=== PATIENT | female | born 1950 | race Caucasian/White ===

== ENCOUNTER 2018-04-23 19:25 | Emergency (ER) | payer OTHER ==
[~2018-04-23] VITALS: Ht 152.4 cm; Wt 49.9 kg
--- NOTE | 2018-04-23 19:25 | NUR ---
Late Entry Patient arrived with 20 gauge angiocath to LAC placed by EMS.
--- NOTE | 2018-04-23 19:25 | NUR ---
Patient felt SOB while getting up from bathroom. She fell to the ground and was in respiratiory arrest at the time of EMS arrival. She had a lucie arrest shortly after. During prehospital care the patient had cardiac arrest and ROSC 3 times, the details of this are somewhat confused. Patient agian had cardiac arrest on arrival. See code sheet for detail. Patient was placed in bed [address] Lewis RT and all nurses at bedside.
[2018-04-23] MEDS ORDERED: NS 1000 ML IV.SOLN IV ONE (19:26)
[2018-04-23] MEDS ORDERED: DOPamine PREMIX 400 MG/250 ML BTL IV ONE (19:26)
[2018-04-23] MEDS ORDERED: EPINEPHrine JECT 1 MG/10 ML SYR IVP ONE (19:26)
[2018-04-23] MEDS ORDERED: SODIUM BICARBONATE 8.4% JECT 50 MEQ/50 ML SYRINGE IVP ONE (19:26)
[2018-04-23] MEDS ORDERED: ATROPINE SULFATE 1 MG/10 ML SYRINGE IVP ONE (19:26)
[2018-04-23] MEDS ORDERED: MAGNESIUM SULFATE 1 GM/2 ML VIAL IV ONE (19:26)
[2018-04-23] MEDS ORDERED: CALCIUM CHLORIDE 1 GM/10 ML DISP.SYRIN (14 mEq Ca++/SYR) IV ONE (19:26)
--- NOTE | 2018-04-23 19:50 | NUR ---
Late Entry 18 Gauge angiocath placed in Left AC. No signs of infiltration. No resistance noted.
[2018-04-23] MEDS ORDERED: AMIODARONE HCL 900 MG/18 ML VIAL IV ONE (19:55)
[2018-04-23] MEDS ORDERED: AMIODARONE HCL 900 MG in D5W 482 ML IV ONE (20:00)
[2018-04-23] MEDS ORDERED: NOREPINEPHRINE 4 MG/4 ML VIAL IV ONE (20:14)
--- NOTE | 2018-04-23 20:18 | NUR ---
Patient at 2017. Please see code blue sheet.
--- NOTE | 2018-04-23 20:20 | NUR ---
Dr. Lewis in Triage room informing , Zheng, of . Patient's accompanied to the patient. states " I have to go home. Please call me on what to do next.
--- NOTE | 2018-04-23 20:22 | NUR ---
[facility] [employer] called contacted by MARK Ornelas. Spoke with Via. States can be released to family to mortuary
--- NOTE | 2018-04-23 21:00 | NUR ---
Note anika in EDM - 04/23/18 at [address] Lewis in Triage room informing , Zheng, of . Patient's accompanied to the patient. states " I have to go home. Please call me on what to do next.
--- NOTE | 2018-04-23 21:08 | NUR ---
Note anika in ED - 04/23/18 at 2224 by SDEDCJM Patient at 2108. Please see code blue sheet.
--- NOTE | 2018-04-23 21:10 | NUR ---
[facility] Ch[facility] Case #[id number].
--- NOTE | 2018-04-23 22:01 | NUR ---
Spoke with pt , Zheng Hutchinson. Recieved verbal/telephone authorization to release body to [facility]. States that Dr. Agatha Joseph is the physician that she has been seeing. She is scheduled for Chemo tomorrow. Call placed to [facility]. OnCall Fellow, Enzo Avitia will be paged. Call returned at [phone]. Gave Dr. Avitia information regarding patient/treatment here at [facility]. Dr. Avitia will give message to Dr. Joseph at report in the AM. Contact numbers for Dr. Joseph on Record of .
--- NOTE | 2018-04-23 22:10 | NUR ---
[facility] called at [phone]. Gave pertinent information. Informed that patient's gave telephone consent. Will greens picker at approximately [phone].
--- NOTE | 2018-04-23 22:53 | NUR ---
Patient tagged and placed in body bag. Awaiting mortuary arrival.
[2018-04-23] MEDS ORDERED: NOREPINEPHRINE BITARTRATE 4 MG in NS 246 ML IV ONE (23:30)
[2018-04-23] MEDS ORDERED: DOPamine PREMIX 250 ML IV ONE (23:30)
--- NOTE | 2018-04-23 23:40 | NUR ---
Remains picked up by [facility] and [facility]. Remains identified by wrist tag and bag tag.
== END 2018-04-23 23:40 | disposition expired ==
LOC: SED 19:25
DX: I46.9 Cardiac arrest, cause unspecified (principal); Z85.048 Personal history of other malignant neoplasm of rectum, rectosigmoid junction, and anus
CPT/HCPCS: 31500; 92950; 96365; 96368; 99285; J0171; J0282; J0461; J1265; J3475; J7030